=== PATIENT | male | born 1960 | race Caucasian/White ===

== ENCOUNTER 2025-06-14 06:44 | Day surgery (SDC) | payer BC ==
[~2025-06-14] VITALS: Ht 180.3 cm; Wt 75.6 kg
[2025-06-14] VITALS (13 sets, daily range): BP systolic 113–138; BP diastolic 77–91; PULSE 57–67; RESP 10–16; TEMP 97.6; O2SAT 92–99
--- NOTE | 2025-06-14 07:48 | ELECTROCARDIOGRAPH REPORT ---
[facility] Test Date: 2025-06-14 Test Time: 07:45:47 Pat Name: RICHARD BAIRD Department: [facility] Patient ID: 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 Reading MD: Dr. MARILEE Stephens Measurements Intervals [place] Rate: 59 P: 80 [place]: 179 QRS: 72 QRSD: 95 T: 57 QT: 426 QTc: 422 Interpretive Statements Sinus rhythm Electronically Signed On 06-14-2025 17:31:[address] MARILEE Stephens Please click the below link to view image of tracing.
[2025-06-14 07:49] LABS: MEAN PLATELET VOLUME 8.1 FL (7.4-10.4); RED CELL DISTRIBUTION WIDTH 13.2 % (11.5-14.5)
[2025-06-14 07:58] LABS: INR 1.0 INR
[2025-06-14] MEDS ORDERED: AMLO10TA13 PO (08:02)
[2025-06-14] MEDS ORDERED: NITR0.4T48 (08:02)
[2025-06-14] MEDS ORDERED: FURO20TA4 PO (08:02)
[2025-06-14] MEDS ORDERED: POTA-206 PO (08:02)
[2025-06-14] MEDS: sodium bicarbonate 1meq/ml syr 150 ML in dextrose 5%-water 1,000 ML IV ONE (08:05)
[2025-06-14 08:08] LABS: CREATININE 1.23 MG/DL (0.60-1.10); TOTAL CARBON DIOXIDE 26.5 MMOL/L (24-32); eCRCL 65 ML/MIN; eGFR 59 ML/MIN
[2025-06-14 08:44] LABS: LYMPHOCYTES % (MANUAL) 66.0 % (21-51); MONOCYTES % (MANUAL) 6.0 % (2-12); NEUTROPHILS % (MANUAL) 28.0 % (42-75); PLATELET ESTIMATE NORMAL
[2025-06-14] MEDS ORDERED: LIDOcaine 1% (10mg/ml) 2ml vial ONE (08:53)
[2025-06-14] MEDS ORDERED: heparin 1,000unit/ml 10ml vial 10 ML ONE (08:53)
[2025-06-14] MEDS ORDERED: verapamil 2.5 mg/ml inj IV ONE (08:53)
[2025-06-14] MEDS ORDERED: iohexol 350 MG/ML 50ML vial IV ONE (08:53)
[2025-06-14] MEDS ORDERED: fentaNYL/PF 50MCG/1 ML 2ML syringe ONE (08:56)
[2025-06-14] MEDS ORDERED: midazolam 1 mg/ML 2ml injection ONE ×4 (08:56→09:35)
[2025-06-14] MEDS ORDERED: nitroGLYCERIN 500mcg/5mL D5W 5 ML IV ONE (08:57)
[2025-06-14] MEDS ORDERED: LIDOcaine 1% 30ml preserv. free vial ONE (09:27)
[2025-06-14] MEDS ORDERED: clopidogrel 300mg tablet ONE (10:00)
[2025-06-14] MEDS ORDERED: protamine sulfate 10mg/ml inj. ONE (10:12)
[2025-06-14] MEDS ORDERED: HYDROcodone/acetaminophen 10/325mg tab PO PRN (10:45)
[2025-06-14] MEDS ORDERED: normal saline 1000ml 1,000 ML IV SCH (10:45)
[2025-06-14] MEDS ORDERED: ondansetron/PF 4mg/2ml inj IV PRN (10:45)
[2025-06-14] MEDS ORDERED: HYDROcodone/acetaminophen 5mg/325mg tablet PO PRN (10:45)
[2025-06-14] MEDS ORDERED: ATOR40TA71 PO (10:58)
[2025-06-14] MEDS ORDERED: CLOP75TA33 PO (10:58)
[2025-06-14] MEDS ORDERED: ASPI-611 PO (10:58)
--- NOTE | 2025-06-14 13:37 | CARDIOLOGY REPORT ---
DATE OF SERVICE: 06/14/2025 DICTATING PHYSICIAN: ADELIA WISEMAN DO CARDIAC CATHETERIZATION REPORT REFERRING PHYSICIAN: Adelia Wiseman DO CLINICAL HISTORY: This 64-year-old man has a 2-month history of low-level exertional dyspnea and chest pressure with exertion. An echocardiogram approximately 2 weeks ago demonstrated an LVEF of about 30%. Because of his new problems with exertional dyspnea and chest pain and because he has a cardiomyopathy, a cardiac catheterization was ordered. PROCEDURES PERFORMED: Left heart catheterization, left ventriculography, selective coronary arteriography, PTCA/stent placement (first/proximal LAD diagonal percutaneous arteriotomy closure) (Perclose) and 45 minutes conscious sedation supervision. DESCRIPTION OF PROCEDURE: The patient was sedated with fentanyl and Versed. He was then prepared and draped in the usual manner. The right inguinal area was infiltrated with 1% lidocaine using a micropuncture set. Under Seldinger technique, a 7-Chilean sheath was placed in the common femoral artery. 3000 units of heparin were given. Left heart catheterization and left ventriculography were performed using a 6-Chilean pigtail catheter. Coronary arteriography was performed using 6-Chilean left and right Jaiden catheters. PTCA/stent placement. The patient was given an additional 7000 units of heparin. A 6-Ch[place]an 3.5 XB LAD guiding catheter was placed in the left main coronary artery. A Choice PT2 guidewire was passed through a high-grade stenosis in a large proximal LAD diagonal with tip was positioned distally. The lesion was then directly stented using a 2.5 x 12 mm Jose Queens drug-eluting stent deployed at 12 atmospheres. After test injections demonstrated stability of the treated area, final arteriography was performed. RESULTS: HEMODYNAMIC DATA: The left ventricular end diastolic pressure was 8 mmHg. There was no gradient across the aortic valve. LEFT VENTRICULOGRAM: The left ventriculogram was technically satisfactory. The ejection fraction was estimated to be 70%. CORONARY ARTERIOGRAPHY: The coronary arteriograms were technically satisfactory. The patient had a left dominant system. LEFT MAIN CORONARY ARTERY: The left main was a large unobstructed vessel bifurcating into the left anterior descending and circumflex coronary arteries. LEFT ANTERIOR DESCENDING CORONARY ARTERY: The LAD was a large transapical vessel. There was a large proximal first diagonal and a tiny second diagonal which was also proximal. There was one more very tiny diagonal in the mid distal portion of the vessel. Just beyond the takeoff of the large first diagonal, there was a 75% stenosis. CIRCUMFLEX CORONARY ARTERY: The circumflex was a large main stem vessel. There was a xnlgdq-[id number]-pwkuy sized branch that was technically an obtuse marginal but had the distribution of an intermediate artery. There were 2 very small obtuse marginals further downstream. There was a large posterolateral branch, a small second posterolateral, and a small posterior descending branch. There were no obstructive lesions in the circumflex coronary artery. RIGHT CORONARY: The right coronary was a ejycd-pb-jacayz sized nondominant vessel with no obstructive disease. PTCA/STENT PLACEMENT: Following deployment of the stent, there was no significant residual stenosis and brisk runoff distally. CONCLUSIONS: * Obstructive coronary artery disease manifested as a 75% proximal LAD principal diagonal. This diagonal was large and had multiple sub-branches. * Successful PTCA/stent placement directed at the principal LAD diagonal. Following the intervention, there was no residual stenosis. DARION flow before and after the intervention was graded as 3. * Left ventricular function has remarkably improved from 30% about 2 weeks ago back to about 70% now. PLAN: Ongoing medical therapy. ADELIA WISEMAN DO TID: [id number] RECEIPT: [id number] RODERICK/KONSTANTIN/PATEL [facility]
== END 2025-06-14 15:50 | disposition home or self-care (01) ==
LOC: SSTAY O 06:44
PROVIDERS: ATTEND Internal Medicine Cardiovascular Disease
DX: R07.89 Other chest pain (principal); I25.10 Atherosclerotic heart disease of native coronary artery without angina pectoris; I10 Essential (primary) hypertension; Z87.891 Personal history of nicotine dependence; Z79.899 Other long term (current) drug therapy; Z98.890 Other specified postprocedural states; Z82.49 Family history of ischemic heart disease and other diseases of the circulatory system
CPT/HCPCS: 36415; 80048; 83735; 85025; 85610; 93005; 93458; 99152; 99153; C1760; C1874; C9600; J1644; J2003; J2250; J2720; J3010; J3490; J7030; J7070; Q0163; Q9967; 85007; C1751; C1769; C1894

== ENCOUNTER 2025-08-23 09:31 | Day surgery (SDC) | payer BC ==
[~2025-08-23] VITALS: Ht 180.3 cm; Wt 74.8 kg
[~2025-08-23 09:31] MED LIST: AMLO10TA13 PO; ASPI-1397 PO; ATOR40TA72 PO; CLOP75TA34 PO; LIDOcaine 2% Viscous 15ml cup MM ONE; PANT40TA54 PO; SUCR1TAB PO
[2025-08-23] MEDS: ringers solution, lacted 1,000 ML IV SCH (10:25)
[2025-08-23 11:01] VITALS: BP 121/78; PULSE 65; RESP 16; TEMP 97.7; O2SAT 99
[2025-08-23 11:07] VITALS: RESP 16
[2025-08-23] MEDS ORDERED: propofol 10mg/ml 20ml vial IV ONE (12:34)
[2025-08-23 12:40] VITALS: BP 103/69; PULSE 67; RESP 15; O2SAT 96
[2025-08-23 12:50] VITALS: BP 100/70; PULSE 58; RESP 14; O2SAT 98
[2025-08-23 13:00] VITALS: BP 106/74; PULSE 63; RESP 15; O2SAT 98
[2025-08-23 13:10] VITALS: BP 112/72; PULSE 61; RESP 14; O2SAT 98
== END 2025-08-23 13:10 | disposition home or self-care (01) ==
LOC: GI LAB 09:31
PROVIDERS: ATTEND Internal Medicine Gastroenterology
DX: R12 Heartburn (principal); K21.00 Gastro-esophageal reflux disease with esophagitis, without bleeding; K31.89 Other diseases of stomach and duodenum; I10 Essential (primary) hypertension; E78.5 Hyperlipidemia, unspecified; Z79.82 Long term (current) use of aspirin; Z79.01 Long term (current) use of anticoagulants; Z79.899 Other long term (current) drug therapy; Z98.890 Other specified postprocedural states
CPT/HCPCS: 43239; 82948; J2704; J7120; Z7512; A4615; A4620; A6258; A6449